=== PATIENT | female | born 1990 | race Caucasian/White ===

== ENCOUNTER 2022-12-04 03:39 | Emergency (ER) | payer OTHER ==
[2022-12-04] MEDS ORDERED: SODIUM CHLORIDE 0.9% 1,000 ML IV ONE ×2 (04:03→04:15)
[2022-12-04 04:35] LABS: ALT 15 U/L (4-34); AST 22 U/L (14-36); African American GFR (CKD) >90 (>60 ml/min/1.73 sqM); Albumin 3.8 g/dL (3.5-5.0); Alkaline Phosphatase 54 U/L (38-126); Anion Gap 9 mmol/L; Blood Urea Nitrogen 7 mg/dL (7-17); Calcium 9.6 mg/dL (8.4-10.2); Carbon Dioxide 20 mmol/L (22-30); Chloride 105 mmol/L (98-107); Glucose 173 mg/dL (74-99); Non-African American GFR(CKD) >90 (>60 ml/min/1.73 sqM); Potassium 3.6 mmol/L (3.5-5.1); Sodium 134 mmol/L (137-145); Total Bilirubin 0.9 mg/dL (0.2-1.3); Total Protein 6.5 g/dL (6.3-8.2)
[2022-12-04] MEDS ORDERED: CARBOPROST TROMETHAMINE 250 MCG/ML 1 ML AMP IM ONE ×3 (05:03→06:49)
[2022-12-04 05:11] LABS: Basophils % (A) 0 %; Eosinophils # (A) 0.1 k/uL (0-0.7); Eosinophils % (A) 0 %; HCT 36.7 % (34.0-46.0); HGB 12.6 gm/dL (11.4-16.0); Lymphocytes # (A) 1.6 k/uL (1.0-4.8); Lymphocytes % (A) 7 %; MCH 29.7 pg (25.0-35.0); MCHC 34.4 g/dL (31.0-37.0); MCV 86.2 fL (80.0-100.0); Mean Platelet Volume 8.2; Monocytes # (A) 0.7 k/uL (0-1.0); Monocytes % (A) 3 %; Neutrophils # (A) 21.7 k/uL (1.3-7.7); Neutrophils % (A) 90 %; Platelet Count 260 k/uL (150-450); RBC 4.26 m/uL (3.80-5.40); RDW 13.8 % (11.5-15.5); WBC 24.2 k/uL (3.8-10.6)
[2022-12-04] MEDS ORDERED: LOPERAMIDE 2 MG CAP PO STA ×2 (05:14→06:02)
[2022-12-04 05:16] LABS: INR 0.9 (<1.2); Partial Thromboplastin Time 23.8 sec (22.0-30.0)
--- NOTE | 2022-12-04 05:26 | ED ---
Female Urogenital HPI - General Chief complaint: Vaginal Bleeding Stated complaint: 15 wks , cramping Time Seen by Provider: 12/04/22 04:00 Source: patient, family Mode of arrival: wheelchair - History of Present Illness Initial comments: 32-year-old female presents to the emergency department with vaginal bleeding. She is a type I diabetic. She is currently 15 weeks . She follows with Dr. Chun. States that she did have a subchorionic hemorrhage which was ultrasounded earlier this week and was 8 cm in size. The patient began having some cramping with spotting on Sunday morning around 11 AM. She went into [facility] where she had an ultrasound completed and demonstrated that the hematoma had shrunk to 2 cm. They report that the baby had a heartbeat. Around 11 PM she began having heavier bleeding and passed a clot. She is with 2 previous miscarriages. She denies any abdominal trauma. No fevers. No dysuria, hematuria or difficulty voiding. No changes in her bowel habits. Blood type is A+. No other alleviating, precipitating or modifying factors - Related Data Previous Rx's Medication Instructions Recorded Acetaminophen Tab [Tylenol] 650 mg PO Q6H PRN #30 tab 12/04/22 Ibuprofen [Motrin] 600 mg PO Q6HR PRN #30 tab 12/04/22 Allergies Allergy/AdvReac Type Severity Reaction Status Date / Time acetaminophen [From Mcintosh] Allergy Unknown Verified 12/04/22 04:11 amoxicillin [From Augmentin] Allergy Unknown Verified 12/04/22 04:11 clavulanic acid Allergy Unknown Verified 12/04/22 04:11 [From Augmentin] erythromycin base Allergy Unknown Verified 12/04/22 04:11 [From Erythrocin] hydrocodone [From Mcintosh] Allergy Unknown Verified 12/04/22 04:11 Sulfa (Sulfonamide Allergy Unknown Verified 12/04/22 04:11 Antibiotics) Review of Systems ROS Statement: Those systems with pertinent positive or pertinent negative responses have been documented in the HPI. ROS Other: All systems not noted in ROS Statement are negative. Past Medical History Past Medical History: Diabetes Mellitus Additional Past Medical History / Comment(s): Type 1 DM. History of Any Multi-Drug Resistant Organisms: None Reported Past Surgical History: Cholecystectomy Additional Past Surgical History / Comment(s): Tubes cleaned, colonoscopy, Past Psychological History: No Psychological Hx Reported Smoking Status: Never smoker Past Alcohol Use History: None Reported Past Drug Use History: None Reported General Exam General appearance: alert, in distress Head exam: Present: atraumatic, normocephalic, normal inspection Eye exam: Present: normal appearance, PERRL, EOMI. Absent: scleral icterus, conjunctival injection, periorbital swelling Respiratory exam: Present: normal lung sounds bilaterally. Absent: respiratory distress, wheezes, rales, rhonchi, stridor Cardiovascular Exam: Present: regular rate, normal rhythm, normal heart sounds. Absent: systolic murmur, diastolic murmur, rubs, gallop, clicks GI/Abdominal exam: Present: soft, normal bowel sounds. Absent: distended, tenderness, guarding, rebound, rigid External exam: Present: other (Vaginal exam demonstrates a 15 week fetus between the patient's legs which is connected to the umbilical cord. This is attached to the placenta which has yet to be delivered. There is a moderate amount of bleeding. Cervix is open) Course Vital Signs 12/04/22 12/04/22 12/04/22 04:00 04:53 07:13 Temperature 97.9 F Pulse Rate 59 L 73 71 Pulse Rate [ Pulse Oximetery ] Respiratory 20 18 17 Rate Blood Pressure 113/61 117/63 124/71 Blood Pressure [Left Arm] O2 Sat by Pulse 99 99 98 Oximetry 12/04/22 12/04/22 12/04/22 08:04 09:09 09:22 Temperature 97.1 F L 97.0 F L Pulse Rate Pulse Rate [ 72 87 Pulse Oximetery ] Respiratory 16 12 Rate Blood Pressure Blood Pressure 145/67 105/59 110/42 [Left Arm] O2 Sat by Pulse 97 100 Oximetry 12/04/22 12/04/22 12/04/22 09:24 09:39 09:54 Temperature Pulse Rate Pulse Rate [ 59 L 57 L 63 Pulse Oximetery ] Respiratory 20 20 20 Rate Blood Pressure Blood Pressure 108/50 111/59 111/54 [Left Arm] O2 Sat by Pulse 100 99 Oximetry 12/04/22 12/04/22 10:07 10:22 Temperature Pulse Rate Pulse Rate [ 60 58 L Pulse Oximetery ] Respiratory 18 16 Rate Blood Pressure Blood Pressure 112/70 119/76 [Left Arm] O2 Sat by Pulse 99 98 Oximetry Medical Decision Making - Medical Decision Making Was pt. sent in by a medical professional or institution (, LICO, [employer], urgent care, hospital, or snf...) When possible be specific @ -No Did you speak to anyone other than the patient for history (EMS, parent, family, police, friend...)? What history was obtained from this source @ -I spoke with the patients Did you review nursing and triage notes (agree or disagree)? Why? @ -I reviewed and agree with nursing and triage notes Were old charts reviewed (outside hosp., previous admission, EMS record, old EKG, old radiological studies, urgent care reports/EKG's, snf records)? Report findings @ -No old charts were reviewed Differential Diagnosis (chest pain, altered mental status, abdominal pain women, abdominal pain men, vaginal bleeding, weakness, fever, dyspnea, syncope, headache, dizziness, GI bleed, back pain, seizure, CVA, palpatations, mental health, musculoskeletal)? @ -Differential Vaginal Bleeding: Spontaneous , threatened , molar , ectopic , bloody show, incompetent cervix, abruptioplacenta, placenta previa, uterine rupture, dysfunctional uterine bleeding, hemorrhage, uterine fi broids, this is not meant to be an all-inclusive list. EKG interpreted by me (3pts min.). @ -Not completed X-rays interpreted by me (1pt min.). @ -None done CT interpreted by me (1pt min.). @ -None done U/S interpreted by me (1pt. min.). @ -None done What testing was considered but not performed or refused? (CT, X-rays, U/S, lab s)? Why? @ -None What meds were considered but not given or refused? Why? @ -None Did you discuss the management of the patient with other professionals (professionals i.e. , LICO, [employer], lab, RT, psych nurse, community mental health social worker, chinese medicine practitioner, teacher, light armored reconnaissance officer, lead case manager)? Give summary @ -Spoke with Dr. Temple who presents to ED Was smoking cessation discussed for >3mins.? @ -No Was critical care preformed (if so, how long)? @ -35 minutes for attempted vaginal delivery of placenta Were there social determinants of health that impacted care today? How? (Homelessness, low income, unemployed, alcoholism, drug addiction, transportation, low edu. Level, literacy, decrease access to med. care, mcc, rehab)? @ -No Was there de-escalation of care discussed even if they declined (Discuss DNR or withdrawal of care, Hospice)? DNR status @ -No What co-morbidities impacted this encounter? (DM, HTN, Smoking, COPD, CAD, Cancer, CVA, ARF, Chemo, Hep., AIDS, mental health diagnosis, sleep apnea, morbid obesity)? @ -None Was patient admitted / discharged? Hospital course, mention meds given and r oute, prescriptions, significant lab abnormalities, going to OR and other pertinent info. @ -Upon arrival patient was placed into room 25. A thorough history and physical exams performed. Patient has given to the fetus in the waiting room. The placenta does remain inside the uterus. Patient is on gowned. Umbilical cord is clamped and cut. I do attempt to pull traction on the cord however a fragment does break off due to the thin nature of the cord. I do attempt to remove the placenta however I continue to have resistance. Because of this I did call and speak with Dr. Chun. She does present to the emergency department. Several rounds of Cytotec and Hemabate are attempted. Placenta is still not delivered. D&C was discussed with the patient and she was agreeable. I did place admitting orders and the patient was taken to the OR Undiagnosed new problem with uncertain prognosis? @ -yes Drug Therapy requiring intensive monitoring for toxicity (Heparin, Nitro, Insulin, Cardizem)? @ -No Were any procedures done? @ -No Diagnosis/symptom? @ -Second trimester vaginal bleeding, spontaneous incomplete miscarriage, retained products of conception, leukocytosis Acute, or Chronic, or Acute on Chronic? @ -acute Uncomplicated (without systemic symptoms) or Complicated (systemic symptoms)? @ -complicated Side effects of treatment? @ -No Exacerbation, Progression, or Severe Exacerbation? @ -No Poses a threat to life or bodily function? How? (Chest pain, USA, ME, pneumonia, PE, COPD, DKA, ARF, appy, cholecystitis, CVA, Diverticulitis, Homicidal, Suicidal, threat to staff... and all critical care pts) @ -yes, patient delivered fetus upon hospital arrival with failed delivery of placenta - Lab Data Result diagrams: 12/04/22 04:07 12/04/22 04:07 Lab Results 12/04/22 12/04/22 12/04/22 Range/Units 04:07 04:07 04:07 WBC 24.2 H (3.8-10.6) k/uL RBC 4.26 (3.80-5.40) m/uL Hgb 12.6 (11.4-16.0) gm/dL Hct 36.7 (34.0-46.0) % MCV 86.2 (80.0-100.0) fL MCH 29.7 (25.0-35.0) pg MCHC 34.4 (31.0-37.0) g/dL RDW 13.8 (11.5-15.5) % Plt Count 260 (150-450) k/uL MPV 8.2 Neutrophils % 90 % Lymphocytes % 7 % Monocytes % 3 % Eosinophils % 0 % Basophils % 0 % Neutrophils # 21.7 H (1.3-7.7) k/uL Lymphocytes # 1.6 (1.0-4.8) k/uL Monocytes # 0.7 (0-1.0) k/uL Eosinophils # 0.1 (0-0.7) k/uL Basophils # 0.0 (0-0.2) k/uL PT 10.0 (9.0-12.0) sec INR 0.9 (<1.2) APTT 23.8 (22.0-30.0) sec Sodium 134 L (137-145) mmol/L Potassium 3.6 (3.5-5.1) mmol/L Chloride 105 (98-107) mmol/L Carbon Dioxide 20 L (22-30) mmol/L Anion Gap 9 mmol/L BUN 7 (7-17) mg/dL Creatinine 0.45 L (0.52-1.04) mg/dL Est GFR (CKD-EPI)AfAm >90 (>60 ml/min/1.73 sqM) Est GFR (CKD-EPI)NonAf >90 (>60 ml/min/1.73 sqM) Glucose 173 H (74-99) mg/dL POC Glucose (mg/dL) (70-110) mg/dL POC Glu Crab Picker ID Calcium 9.6 (8.4-10.2) mg/dL Total Bilirubin 0.9 (0.2-1.3) mg/dL AST 22 (14-36) U/L ALT 15 (4-34) U/L Alkaline Phosphatase 54 (38-126) U/L Total Protein 6.5 (6.3-8.2) g/dL Albumin 3.8 (3.5-5.0) g/dL Blood Type Blood Type Confirm Blood Type Recheck Bld Type Recheck Status Antibody Screen Spec Expiration Date 12/04/22 12/04/22 12/04/22 Range/Units 04:07 04:07 08:14 WBC (3.8-10.6) k/uL RBC (3.80-5.40) m/uL Hgb (11.4-16.0) gm/dL Hct (34.0-46.0) % MCV (80.0-100.0) fL MCH (25.0-35.0) pg MCHC (31.0-37.0) g/dL RDW (11.5-15.5) % Plt Count (150-450) k/uL MPV Neutrophils % % Lymphocytes % % Monocytes % % Eosinophils % % Basophils % % Neutrophils # (1.3-7.7) k/uL Lymphocytes # (1.0-4.8) k/uL Monocytes # (0-1.0) k/uL Eosinophils # (0-0.7) k/uL Basophils # (0-0.2) k/uL PT (9.0-12.0) sec INR (<1.2) APTT (22.0-30.0) sec Sodium (137-145) mmol/L Potassium (3.5-5.1) mmol/L Chloride (98-107) mmol/L Carbon Dioxide (22-30) mmol/L Anion Gap mmol/L BUN (7-17) mg/dL Creatinine (0.52-1.04) mg/dL Est GFR (CKD-EPI)AfAm (>60 ml/min/1.73 sqM) Est GFR (CKD-EPI)NonAf (>60 ml/min/1.73 sqM) Glucose (74-99) mg/dL POC Glucose (mg/dL) 123 H (70-110) mg/dL POC Glu Crab Picker ID Stone, Destini Calcium (8.4-10.2) mg/dL Total Bilirubin (0.2-1.3) mg/dL AST (14-36) U/L ALT (4-34) U/L Alkaline Phosphatase (38-126) U/L Total Protein (6.3-8.2) g/dL Albumin (3.5-5.0) g/dL Blood Type A Positive Blood Type Confirm A Positive Blood Type Recheck No Previous Record Bld Type Recheck Status CABO Indicated Antibody Screen NEGATIVE Spec Expiration Date 12/07/2022 - 230612/04/22 Range/Units 09:31 WBC (3.8-10.6) k/uL RBC (3.80-5.40) m/uL Hgb (11.4-16.0) gm/dL Hct (34.0-46.0) % MCV (80.0-100.0) fL MCH (25.0-35.0) pg MCHC (31.0-37.0) g/dL RDW (11.5-15.5) % Plt Count (150-450) k/uL MPV Neutrophils % % Lymphocytes % % Monocytes % % Eosinophils % % Basophils % % Neutrophils # (1.3-7.7) k/uL Lymphocytes # (1.0-4.8) k/uL Monocytes # (0-1.0) k/uL Eosinophils # (0-0.7) k/uL Basophils # (0-0.2) k/uL PT (9.0-12.0) sec INR (<1.2) APTT (22.0-30.0) sec Sodium (137-145) mmol/L Potassium (3.5-5.1) mmol/L Chloride (98-107) mmol/L Carbon Dioxide (22-30) mmol/L Anion Gap mmol/L BUN (7-17) mg/dL Creatinine (0.52-1.04) mg/dL Est GFR (CKD-EPI)AfAm (>60 ml/min/1.73 sqM) Est GFR (CKD-EPI)NonAf (>60 ml/min/1.73 sqM) Glucose (74-99) mg/dL POC Glucose (mg/dL) 95 (70-110) mg/dL POC Glu Crab Picker ID Sherrie Bustillo Calcium (8.4-10.2) mg/dL Total Bilirubin (0.2-1.3) mg/dL AST (14-36) U/L ALT (4-34) U/L Alkaline Phosphatase (38-126) U/L Total Protein (6.3-8.2) g/dL Albumin (3.5-5.0) g/dL Blood Type Blood Type Confirm Blood Type Recheck Bld Type Recheck Status Antibody Screen Spec Expiration Date Disposition Clinical Impression: Second trimester , Premature delivery, Placenta incomplete at delivery Disposition: ADMITTED IP TO THIS [facility] Condition: Stable Is patient prescribed a controlled substance at d/c from ED?: No Time of Disposition: 08:00 Decision to Admit Reason: Admit from EC Decision Date: 12/04/22 Decision Time: 08:00
[2022-12-04] MEDS ORDERED: OXYTOCIN 10 UNIT/ML 1 ML VIAL IM ONE (06:07)
[2022-12-04] MEDS ORDERED: ONDANSETRON 4 MG/2 ML VIAL IVP STA (06:15)
[2022-12-04] MEDS ORDERED: KETOROLAC 15 MG/ML 1 ML VIAL IVP STA (07:36)
--- NOTE | 2022-12-04 07:37 | P.OBCN ---
History of Present Illness Consult date: 12/04/22 Reason for consult: other (15 week spontaneous , retained placenta) Chief complaint: Cramping, bleeding in History of present illness: Ms. Beltran is a 32 year old at 15 weeks and 1 day with EDC of 05/26/2022 (by LMP consistent with 1st trimester US) who presents to the emergency department for heavy vaginal bleeding and painful cramping that she rates 10/10. I spoke with the patient on the phone during the beginning of this episode and encouraged her to go to the ER for the severity of pain she was experiencing. The is notable for a subchornionic hematoma measuring 2.9 centimeters from which she has been intermittently symptomatic with bleeding and cramping. Upon arrival to the emergency department, she delivered the fetus. However, placenta has remained in situ for approximately 1 hour and 20 minutes. Past obstetric history: 2 full-term and 2 pre-term sections, 2 spontaneous abortions Past medical history: Type I diabetes Past surgical history: section x4, cholecystectomy, hysterosalpingogram, wisdom teeth extraction, EGD Medications: Insulin pump with continuous glucose monitor Past Medical History Past Medical History: Diabetes Mellitus Additional Past Medical History / Comment(s): Type 1 DM. History of Any Multi-Drug Resistant Organisms: None Reported Past Surgical History: Cholecystectomy Additional Past Surgical History / Comment(s): Tubes cleaned, colonoscopy, Past Psychological History: No Psychological Hx Reported Smoking Status: Never smoker Past Alcohol Use History: None Reported Past Drug Use History: None Reported Medications and Allergies Allergies Allergy/AdvReac Type Severity Reaction Status Date / Time acetaminophen [From Pingree] Allergy Unknown Verified 12/04/22 04:11 amoxicillin [From Augmentin] Allergy Unknown Verified 12/04/22 04:11 clavulanic acid Allergy Unknown Verified 12/04/22 04:11 [From Augmentin] erythromycin base Allergy Unknown Verified 12/04/22 04:11 [From Erythrocin] hydrocodone [From Pingree] Allergy Unknown Verified 12/04/22 04:11 Sulfa (Sulfonamide Allergy Unknown Verified 12/04/22 04:11 Antibiotics) Exam Vital Signs Temp Pulse Resp BP Pulse Ox 12/04/22 04:53 73 18 117/63 99 12/04/22 04:00 97.9 F 59 L 20 113/61 99 Intake and Output 12/03/22 12/03/2212/04/23 14:59 22:59 06:59 Other: Weight 63.503 kg Focused physical exam is performed. This is a healthy-appearing female in no apparent distress. Breathing is non-labored. Abdomen is soft, minimally tender. Vaginal bleeding is minimal. Speculum exam is deferred, as the patient recently had one with the ER physician who saw a retained placenta and was unable to remove it. Extremities are non-tender and non-edematous. Results Result Diagrams: 12/04/22 04:07 12/04/22 04:07 Abnormal Lab Results - Last 24 Hours (Table) 12/04/22 12/04/22 Range/Units 04:07 04:07 WBC 24.2 H (3.8-10.6) k/uL Neutrophils # 21.7 H (1.3-7.7) k/uL Sodium 134 L (137-145) mmol/L Carbon Dioxide 20 L (22-30) mmol/L Creatinine 0.45 L (0.52-1.04) mg/dL Glucose 173 H (74-99) mg/dL Assessment and Plan Assessment: 32 year old at 15 weeks and 1 day s/p spontaneous now with retained placenta Plan: 1. Retained placenta. Patient now s/p 3 doses of IM Hemabate 0.25 mg and 10 units of IM Pitocin. Placenta has been retained for 4 hours now. Patient consented for suction D&C in the OR under general anesthesia. NPO since 1999 last night. Discussed risks, benefits, and alternatives to surgery including bleeding, infection, and uterine perforation. The patient understands these risks and desires to proceed with surgery. 2. Fetus. Parents elect not to send to a home and do not request any genetic testing on the fetus. Fetus will be sent in formalin to pathology. Forms signed. 3. Close monitoring of patient. Bleeding stable at this time. Time with Patient: Greater than 30 (1 hour)
[2022-12-04] MEDS ORDERED: DOXYCYCLINE 100 MG CAP PO STA (07:48)
[2022-12-04] MEDS ORDERED: LACTATED RINGERS 1,000 ML IV ONE ×3 (08:02→09:46)
[2022-12-04 08:24] LABS: Glucose,Whole Blood 123 mg/dL (70-110)
[2022-12-04] MEDS ORDERED: fentaNYL (PF) 50 MCG/ML 2 ML AMP ONE (08:25)
[2022-12-04] MEDS ORDERED: PROPOFOL 10 MG/ML 20 ML VIAL IV ONE (08:25)
[2022-12-04] MEDS ORDERED: METHYLERGONOVINE 0.2 MG/ML 1 ML AMP ONE (08:25)
[2022-12-04] MEDS ORDERED: SUCCINYLCHOLINE CHLORIDE 200 MG/10 ML VIAL IV ONE (08:25)
[2022-12-04] MEDS ORDERED: PHENYLEPHRINE-0.9% NACL SYG 1,000 MCG/10 ML SYRINGE ONE (08:25)
[2022-12-04] MEDS ORDERED: LIDOCAINE 2% INJ 20 MG/ML (2 ML VIAL) ONE (08:25)
--- NOTE | 2022-12-04 09:01 | P.OP ---
Date of Procedure: 12/04/22 Preoperative Diagnosis: 1. Spontaneous at 15 weeks and 1 day 2. Retained placenta Postoperative Diagnosis: Same Procedure(s) Performed: Exam Under Anesthesia Implants: None Anesthesia: CHENCHO Surgeon: Marybeth Chun Estimated Blood Loss (ml): 300 Urine output (ml): 400 Pathology: other (placenta) Condition: stable Disposition: same day Indications for Procedure: This is a 32-year-old at 15 weeks and 1 day who presented to the ER after having cramping and vaginal bleeding at home with a known subchorionic hematoma who then went on to have a spontaneous miscarriage of the fetus upon arrival at 4:30 this morning. The placenta was retained despite 3 doses of IM Hemabate and IM oxytocin. The decision was made after 4 hours to proceed with suction D&C in the OR. The patient was consented about the risks of bleeding, infection, and uterine perforation. The patient understood these risks and desired to proceed. Operative Findings: Exam under anesthesia revealed a placenta in the vagina, which was removed intact with ring forceps and sent in formalin to pathology. Cervix was dilated to approximately 4 to 5 centimeters. Bimanual massage was performed and revealed at [id number] uterus. Bleeding was moderate after removal of the placenta, so 0.2 of IM Methergine was given for bleeding prophylaxis. Bleeding after administration of hemabate was minimal. Description of Procedure: The patient was taken to the operating room where a general anesthetic was administered. She was then positioned in the dorsal lithotomy position and prepped and draped in the normal sterile fashion. Once the anesthetic was found to be adequate, a bimanual exam was performed under anesthetic with the above findings noted. A weighted speculum was placed in the vigina and the placenta was found to be sitting at the external os of the cervix. This was removed intact with ring forceps. A vigorous bimanual massage was performed and 0.2 mg of IV Methergine were given for bleeding prophylaxis. The cervix was hemostatic at this time. The patient is Rh positive. After a second bimanual exam was performed the patient's uterus had significantly decreased in size.The patient was taken from the operating room in stable condition after she was cleaned. She will be discharged home today and will follow up in the office in 2 weeks.
[2022-12-04 09:21] VITALS: TEMP 97
[2022-12-04 09:33] LABS: Glucose,Whole Blood 95 mg/dL (70-110)
[2022-12-04 10:23] VITALS: RESP 16
[2022-12-04 11:08] VITALS: BP 112/64; PULSE 60
== END 2022-12-04 18:31 | disposition home or self-care (01) ==
LOC: EC 03:39 → OR 08:01
DX: O03.4 Incomplete spontaneous abortion without complication (principal); E10.9 Type 1 diabetes mellitus without complications; Z79.4 Long term (current) use of insulin; Z88.0 Allergy status to penicillin; Z88.1 Allergy status to other antibiotic agents; Z88.2 Allergy status to sulfonamides; Z88.5 Allergy status to narcotic agent; Z90.49 Acquired absence of other specified parts of digestive tract
CPT/HCPCS: 86900; 86901; 80053; 85025; 85610; 85730; 86850; 59812; J0330; J2210; J2590; J2405; J3010; J1885; J2704; J2001; J2371; 36415; 88300; 88305

== ENCOUNTER 2023-07-14 21:07 | Outpatient (CLI) | payer OTHER ==
[2023-07-14 21:39] LABS: Appearance,Urine Clear (Clear); Bilirubin,Urine Negative (Negative); Blood,Urine Negative (Negative); Color,Urine Colorless; Glucose,Urine (UA) 3+ (Negative); Ketones,Urine Negative (Negative); Leukocyte Esterase,Urine Negative (Negative); Nitrite,Urine Negative (Negative); PH, Urine 6.5 (5.0-8.0); Protein,Urine Negative (Negative); Specific Gravity,Urine 1.003 (1.001-1.035); Urobilinogen,Urine <2.0 mg/dL (<2.0)
[2023-07-14 23:01] VITALS: BP 122/87; PULSE 70; RESP 16; TEMP 97.3
--- NOTE | 2023-08-27 09:08 | P.MSEPDOC ---
Presenting Problems - Arrival Data Date of Arrival on Unit: 07/14/23 Time of Arrival on Unit: 21:07 Mode of Transport: Ambulatory - Complaint OB-Reason for Admission/Chief Complaint: Pain Comment: Patient presents [facility] with complaint of contraction pain that began at 1730. Patient states they begin in her upper abdomen and radiate to her back, at the same time she reports feeling vaginal pressure. Patient states that the pain is 7/10, constant and does not feel like it lets up completely. Medical History - Information : 8 Para: 4 Term: 4 : 0 Abortions: Spontaneous or Elective: 3 Number of Living Children: 4 - Gestational Age Gestational Age by CLAUDINE (wks/days): 22 Weeks and 1 Days - History Comment: type 1 DM Review of Systems - Review of Systems Constitutional: No problems Breast: No problems ENT: No problems Cardiovascular: No problems Respiratory: No problems Gastrointestinal: No problems Genitourinary: No problems Musculoskeletal: No problems Neurological: No problems Skin: No problems Vital Signs - Temperature Temperature: 97.3 F Temperature Source: Temporal Artery Scan - Pulse Right Brachial Pulse Rate: 70 Pulse Assessment Method: Automatic Cuff - Respirations Respiratory Rate: 16 Oxygen Delivery Method: Room Air O2 Sat by Pulse Oximetry: 100 - Blood Pressure Right Arm Blood Pressure: 122/87 Blood Pressure Mean: 98 Blood Pressure Source: Automatic Cuff Medical Screen Scoring - Cervical Exam Membranes: Intact - Uterine Contractions Resting: Soft to palpation Physician Notification - Physician Notified Physician Notified Date: 07/14/23 Physician Notified Time: 22:01 Physician: Cee Son New Order Received: Yes - Notification Comment Comment: Dr. Son called with report on patient who presents to triage with rep ort of contraction type pain that radiates to pelvis and back that began at 1730. No contractions per toco and abdomen soft. U/A and vitals reviewed. Dr. Son ordered cervical exam by RN, if closed may be discharged. Patient to follow up within the next week and pelvic rest. Maternal Triage Index - Non-Urgent/Priority 4 Non-Urgent Priority 4: Yes Criteria Met for Priority 4: discomforts of Disposition - Disposition OB Disposition: Discharge to home Discharge Date: 07/14/23 Discharge Time: 22:12 I agree with the RN Medical Screening Exam: Yes Case reviewed; plan agreed upon as documented in EMR&OBIX.: Yes Diagnosis: RELATED CONDITIONS, UNSPECIFIED, SECOND TRIMESTER
== END 2023-07-14 22:17 ==
LOC: FBPOP 21:07
PROVIDERS: ATTEND Obstetrics & Gynecology Obstetrics
DX: O26.892 Other specified pregnancy related conditions, second trimester (principal); R10.10 Upper abdominal pain, unspecified; M51.9 Unspecified thoracic, thoracolumbar and lumbosacral intervertebral disc disorder; M54.9 Dorsalgia, unspecified; R10.2 Pelvic and perineal pain; O24.012 Pre-existing type 1 diabetes mellitus, in pregnancy, second trimester; Z3A.22 22 weeks gestation of pregnancy; Z88.1 Allergy status to other antibiotic agents; Z88.0 Allergy status to penicillin; Z88.5 Allergy status to narcotic agent; Z88.2 Allergy status to sulfonamides; Z88.8 Allergy status to other drugs, medicaments and biological substances
CPT/HCPCS: 81003; G0463; 99213

== ENCOUNTER 2023-10-11 22:59 | Outpatient (CLI) | payer OTHER ==
[2023-10-12 00:05] LABS: Appearance,Urine Clear (Clear); Bilirubin,Urine Negative (Negative); Blood,Urine Negative (Negative); Color,Urine Colorless; Glucose,Urine (UA) 4+ (Negative); Ketones,Urine Negative (Negative); Leukocyte Esterase,Urine Negative (Negative); Nitrite,Urine Negative (Negative); PH, Urine 6.5 (5.0-8.0); Protein,Urine Negative (Negative); Specific Gravity,Urine 1.011 (1.001-1.035); Urobilinogen,Urine <2.0 mg/dL (<2.0)
[2023-10-12] MEDS: TERBUTALINE 1 MG/ML VIAL SQ STA ×3 (01:21→02:25)
[2023-10-12] MEDS: LACTATED RINGERS 1,000 ML IV ONE (02:27)
[2023-10-12 03:05] VITALS: BP 123/78; PULSE 68; RESP 16; TEMP 97.2
--- NOTE | 2023-10-28 10:59 | P.MSEPDOC ---
Presenting Problems - Arrival Data Date of Arrival on Unit: 10/12/23 Time of Arrival on Unit: 22:59 Mode of Transport: Ambulatory - Complaint OB-Reason for Admission/Chief Complaint: PIH Comment: Pt presents stating that she had talked to Dr. Chun today at approximately 2pm and was having complaints of vision changes with blurred vision that is worse on her right side and floaters in her vision, a headache and increased blood pressure. Pt states that she took her blood pressure a few times today and the highest blood pressure she had was 140s/70s. Pt states that her blood pressure usually runs in the low 100s diastolic. Pt states that when she spoke with Dr. Chun this afternoon, Dr. Chun had told her to come to triage for monitoring and labs. Pt states that she "thought it would go away" and so she did not come in this afternoon. Pt also states that she is having contractions about every 20 minutes. Medical History - Information : 8 Para: 4 Term: 4 : 0 Abortions: Spontaneous or Elective: 3 Number of Living Children: 4 - Gestational Age Gestational Age by CLAUDINE (wks/days): 35 Weeks and 0 Days Review of Systems - Review of Systems Constitutional: No problems Breast: No problems ENT: No problems Cardiovascular: No problems Respiratory: No problems Gastrointestinal: No problems Genitourinary: No problems Musculoskeletal: No problems Neurological: No problems Skin: No problems Vital Signs - Temperature Temperature: 97.2 F Temperature Source: Temporal Artery Scan - Pulse Pulse Oximetery Pulse Rate: 68 Pulse Assessment Method: Pulse Oximetry - Respirations Respiratory Rate: 16 Oxygen Delivery Method: Room Air O2 Sat by Pulse Oximetry: 99 - Blood Pressure Right Arm Blood Pressure: 123/78 Blood Pressure Mean: 93 Blood Pressure Source: Automatic Cuff Medical Screen Scoring - Cervical Exam Dilation (cm): 0 Effacement (%): 50 Station: -2 Membranes: Intact - Uterine Contractions Frequency From (mins): 2 Frequency To (mins): 5 Duration From (seconds): 50 Duration To (seconds): 70 Intensity: Mild Resting: Soft to palpation - Assessment - Baby A Baseline FHR: 130 Heart Rate - NICHD Category: Category I (Normal) NST: Reactive Physician Notification - Physician Notified Physician Notified Date: 07/18/24 Physician Notified Time: 23:35 Physician: Castillo Wray Order Received: Yes - Notification Comment Comment: At 2335, Dr. Wray called at home, notified of pt complaints, GA, G/P, contraction pattern, serial blood pressures, CAT 1 FHT. At this time, blood pressurs do not indicate need for PIH workup. Orders for U/A, if pt hurting with contractions, check cervix, call back with results. At 0111, Dr. wray called and notified of contractions every 2-5min pt. rating pain 6/10, no cervical change pt. is closed and thick, orders to start terb, and if contractions go away with medication pt. can be discharge home. At 0226, RN spoke with Dr. Wray and updated him on pt status, including pt has received three doses of terbutaline, pt is still having some contx but rating them 2 out of 10. Order received to check pt's cervix and if it is still closed, pt can be discharged home with instructions on when to return for labor. Maternal Triage Index - Maternal Triage Index Presenting for scheduled procedure w/no complaint: No - Stat/Priority 1 Stat Priority 1: No - Urgent/Priority 2 Urgent Priority 2: No - Prompt/Priority 3 Prompt Priority 3: Yes Criteria Met for Priority 3: C/o early labor signs 34 6/7 weeks Disposition - Disposition OB Disposition: Discharge to home, Written follow up instructions reviewed Discharge Date: 10/12/23 Discharge Time: 02:40 I agree with the RN Medical Screening Exam: Yes Physician's MSE Comment: I have neither seen nor examined the patient. Case reviewed; plan agreed upon as documented in EMR&OBIX.: Yes Diagnosis: RELATED CONDITIONS, UNSPECIFIED, THIRD TRIMESTER
== END 2023-10-12 02:40 | disposition home or self-care (01) ==
LOC: FBPOP 22:59
PROVIDERS: ATTEND Obstetrics & Gynecology
DX: O13.3 Gestational [pregnancy-induced] hypertension without significant proteinuria, third trimester (principal); Z3A.35 35 weeks gestation of pregnancy; Z88.1 Allergy status to other antibiotic agents; Z88.0 Allergy status to penicillin; Z88.5 Allergy status to narcotic agent; Z88.2 Allergy status to sulfonamides; Z88.8 Allergy status to other drugs, medicaments and biological substances
CPT/HCPCS: 59025; 96372; 81003; G0463; J3105; 99215

== ENCOUNTER 2023-10-23 21:20 | Inpatient (IN) | payer OTHER ==
[2023-10-23] MEDS ORDERED: METHYLERGONOVINE 0.2 MG/ML 1 ML AMP IM PRN (21:57)
[2023-10-23] MEDS ORDERED: miSOPROStoL 200 MCG TAB PO PRN (21:57)
[2023-10-23] MEDS ORDERED: TRANEXAMIC 1,000 MG/100ML-NACL 1,000 MG in EMPTY BAG 1 BAG IV PRN (21:57)
[2023-10-23] MEDS ORDERED: CARBOPROST TROMETHAMINE 250 MCG/ML 1 ML AMP IM PRN (21:57)
[2023-10-23] MEDS ORDERED: OXYTOCIN 10 UNIT/ML 1 ML VIAL IM PRN (21:57)
[2023-10-23] MEDS ORDERED: OXYTOCIN 30 UNITS/500 ML NS 30 UNIT in SALINE 1 500ML.BAG IV SCH (22:00)
[2023-10-23] MEDS ORDERED: TERBUTALINE 1 MG/ML VIAL SQ PRN (22:00)
[2023-10-23] MEDS: CITRIC ACID-SODIUM CITRATE 15 ML CUP PO ONE (22:22)
[2023-10-23] MEDS: LACTATED RINGERS 1,000 ML IV SCH (22:24)
[2023-10-23 22:28] LABS: Basophils % (A) 0 %; Eosinophils # (A) 0.1 k/uL (0-0.7); Eosinophils % (A) 1 %; HCT 33.9 % (34.0-46.0); HGB 11.8 gm/dL (11.4-16.0); Lymphocytes # (A) 1.2 k/uL (1.0-4.8); Lymphocytes % (A) 12 %; MCH 30.4 pg (25.0-35.0); MCHC 34.7 g/dL (31.0-37.0); MCV 87.6 fL (80.0-100.0); Monocytes # (A) 0.7 k/uL (0-1.0); Monocytes % (A) 7 %; Neutrophils # (A) 7.7 k/uL (1.3-7.7); Neutrophils % (A) 78 %; Platelet Count 175 k/uL (150-450); RBC 3.87 m/uL (3.80-5.40); RDW 14.1 % (11.5-15.5); WBC 9.8 k/uL (3.8-10.6)
--- NOTE | 2023-10-23 22:31 | P.HPOB ---
History of Present Illness H&P Date: 10/23/23 Chief Complaint: Leaking of fluid Ms. Beltran is a 33 year old at 36 weeks and 4 days with EDC of 11/16/2023 by LMP consistent with 7 week US who presents with grossly ruptured membranes. Her has been complicated by Type 1 Diabetes and history of 4 previous sections. She has been undergoing biweekly surveillance throughout the third trimester. The patient follows with endocrinology for diabetes management. She has a continuous glucose monitor and an insulin pump which is regularly reviewed and titrated per endocrinology. She has also followed with MFM throughout the for co-management. She desires permanent contraception with bilateral salpingectomy, for which consent has been signed and reviewed with the patient. The fetus is estimated to measure in greater than the 99%ile for growth based on a 30 week US. Obstetric history: 2 full-term , 2 pre-term c-sections, 1 15-week SAB secondary to placental abruption, 2 SABs. work-up: blood type A positive, antibody screen negative, rubella immune, VDRL non-reactive, HBsAg negative, HIV negative, HCV Ab negative, gonorrhea negative, chlamydia negative, GBS unknown (collected yesterday). s/p TDap vaccine 10/17/23. Past Medical History Past Medical History: Diabetes Mellitus Additional Past Medical History / Comment(s): Type 1 DM. History of Any Multi-Drug Resistant Organisms: None Reported Past Surgical History: Cholecystectomy Additional Past Surgical History / Comment(s): Tubes cleaned, colonoscopy, Past Anesthesia/Blood Transfusion Reactions: No Reported Reaction Past Psychological History: No Psychological Hx Reported Smoking Status: Never smoker Past Alcohol Use History: None Reported Past Drug Use History: None Reported Medications and Allergies Home Medications Medication Instructions Recorded Confirmed Type Iron 18 mg PO DAILY 07/14/23 10/23/23 History Vit No.179/Iron/Folic 1 each PO DAILY 07/14/23 10/23/23 History [ Tablet] Allergies Allergy/AdvReac Type Severity Reaction Status Date / Time acetaminophen [From Harlan] Allergy Rash/Hives Verified 10/23/23 21:37 amoxicillin [From Augmentin] Allergy Rash/Hives Verified 10/23/23 21:37 clavulanic acid Allergy Rash/Hives Verified 10/23/23 21:37 [From Augmentin] erythromycin base Allergy Rash/Hives Verified 10/23/23 21:37 [From Erythrocin] hydrocodone [From Harlan] Allergy Rash/Hives Verified 10/23/23 21:37 Sulfa (Sulfonamide Allergy Rash/Hives Verified 10/23/23 21:37 Antibiotics) Exam Vital Signs Temp Pulse Resp BP Pulse Ox 10/23/23 22:02 98.7 F 81 16 137/96 98 Intake and Output 10/23/23 10/23/23 10/23/23 06:59 14:59 22:59 Other: Weight 81.193 kg Focused physical exam is performed. This is a healthy-appearing in no apparent distress. Breathing is non-labored. Abdomen is gravid and non-tender. Cervical exam is 1/thick/high. Patient is noted to be grossly ruptured. Extremities non-tender and non-edematous. heart tones are Category I and tocometer is graphing contractions every 3-4 minutes. Assessment and Plan Assessment: 33 year old at 36 weeks and 4 days with history of 4 prior c-sections and Type I DM presenting with PPROM Plan: Admit, initiate protocol, NPO, IV kefzol for surgical ppx.
[2023-10-23] MEDS ORDERED: diphenhydrAMINE 50 MG/ML 1 ML VIAL ONE (22:35)
[2023-10-23] MEDS ORDERED: MORPHINE SULFATE (PF) 0.3 MG/0.3 ML SYR ONE (22:35)
[2023-10-23] MEDS ORDERED: DEXAMETHASONE SOD PHOS (MDV) 100 MG/10 ML VIAL ONE (22:35)
[2023-10-23] MEDS ORDERED: PHENYLEPHRINE-0.9% NACL SYG 1,000 MCG/10 ML SYRINGE ONE (22:35)
[2023-10-23] MEDS ORDERED: fentaNYL (PF) 50 MCG/ML 2 ML AMP ONE (22:35)
[2023-10-23] MEDS ORDERED: OXYTOCIN 10 UNIT/ML 1 ML VIAL ONE (22:35)
[2023-10-23] MEDS ORDERED: ONDANSETRON 4 MG/2 ML VIAL ONE (22:35)
[2023-10-23] MEDS ORDERED: KETOROLAC 15 MG/ML 1 ML VIAL ONE (22:35)
[2023-10-24] MEDS ORDERED: ONDANSETRON 4 MG/2 ML VIAL IVP PRN (00:07)
[2023-10-24] MEDS ORDERED: METOCLOPRAMIDE 5 MG/ML 2 ML VIAL IVP PRN (00:07)
[2023-10-24] MEDS ORDERED: diphenhydrAMINE 25 MG CAP PO PRN (00:07)
[2023-10-24] MEDS ORDERED: NALOXONE 0.4 MG/ML 1 ML VIAL IV PRN (00:07)
[2023-10-24] MEDS ORDERED: diphenhydrAMINE 50 MG CAP PO PRN (00:07)
[2023-10-24] MEDS ORDERED: diphenhydrAMINE 50 MG/ML 1 ML VIAL IVP PRN ×2 (00:07)
[2023-10-24] MEDS ORDERED: ZOLPIDEM 5 MG TAB PO PRN (00:07)
--- NOTE | 2023-10-24 00:07 | P.OP ---
Date of Procedure: 10/23/23 Preoperative Diagnosis: 1. IUP at 36 weeks and 4 days 2. History of 4 prior sections 3. PPROM 4. Type I Diabetes Mellitus 5. Breech presentation 6. Desires permanent contraception Postoperative Diagnosis: Same Procedure(s) Performed: Repeat Lower Transverse Section with Bilateral Salpingectomy Implants: None Anesthesia: spinal Surgeon: Marybeth Chun Sales Service Assistant #1: Natalee Arevalo Estimated Blood Loss (ml): 366 IV fluids (ml): 1,500 Urine output (ml): 800 (clear yellow) Pathology: other (placenta to pathology) Condition: stable Disposition: floor Indications for Procedure: Ms. Beltran is a 33 year old at 36 weeks and 4 days with a complicated by Type I diabetes mellitus and history of 4 prior sections who presents to labor and delivery with gross rupture of membranes. The risks, benefits, and alternatives to section were discussed with the patient including risk of bleeding, infection, damage to surrounding structures including bladder/bowels/ureters, and post-operative VTE. The patient understands these risks and desires to proceed with section. The patient understands that bilateral salpingectomy is non-reversible and she will never be able to conceive again without IVF. All questions answered. Operative Findings: Significant adhesions throughout the pelvis from the uterus to the anterior abdominal wall. Clear amniotic fluid is noted. Viable female infant is delivered from footling breech presentation. Apgars are 7 and 9. Weight is 9 pounds and 15 ounces. Aside from adhesions, the uterus is normal. Bilateral fallolpian tubes and ovaries are unremarkable. Description of Procedure: The patient was taken back to the operating room where spinal anesthesia was found to be adequate. Two grams of Ancef were given for infection prophylaxis. She was prepared and draped in the dorsal supine position with a leftward tilt. A Pfannenstiel skin incision was made with the scalpel. The incision was carried down to the fascia with a bovie. The fascia was incised and extended laterally with Peterson scissors. The superior aspect of the fascia was grasped with the Gladys clamps. The underlying rectus muscle was dissected off sharply with Peterson scissors. In a similar fashion, the inferior aspect of the fascia was elevated with Gladys clamps and the rectus muscle and pyramidalis were dissected off. Excellent hemostasis was achieved with the bovie. The rectus muscle was in the midline down to the level of the pubic symphysis. Pre- peritoneal fatty tissue was bluntly dissected to expose the peritoneum. The peritoneum was found to be free of adherent bowel and entered sharply with Peterson scissors. The peritoneal incision was extended superiorly and inferiorly to the bladder reflection with good visualization of the bladder. The bladder blade was inserted and vesicouterine peritoneum was identified. Intraabdominal survey revealed scant, clear peritoneal fluid and the thinned-out lower uterine segment. The vesicouterine peritoneum was opened with scissors and the bladder flap was developed. The bladder blade was repositioned to keep the bladder out of the operative field. The lower uterine segment was incised with a scalpel. The amniotic sac was ruptured with an Allis clamp and clear fluid was noted. The uterine incision was extended bluntly with lateral and upward traction. The fetus was in double footling breech presentation. The feet were delivered. The buttocks was palpated and delivered gradually through the hysterotomy. With gentle pressure the body gradually delivered. Once the scapula could be seen the baby was gently rotated and both arms were delivered using the Loveseat maneuver. Maintaining head flexion in a modified [id number] maneuver the head was delivered without difficulty. The infant was delivered. The mouth and nose were suctioned with a bulb. The cord was clamped and cut. The infant was handed off to the pediatric gia. IV oxytocin was initiated to facilitate uterine contractions. The placenta was delivered intact with manual massage of uterine fundus. The uterus was then exteriorized and the inside of the uterus was gently wiped with a lap sponge to assure complete removal of placental membranes. The uterine incision was closed with 0-Vicryl suture in a running locked fashion. A second imbricating layer was placed with 0-Vicryl. The ovaries and tubes were found to be normal. The LigaSure device was used to sequentially cauterize and cut the fallopian tubes from the fimbriated ends to the level of the uterine cornua. The uterus and ovaries were then gently returned to the abdominal cavity. The abdomen was copiously suction irrigated. Surgicel powder was applied to the hysterotomy for hemostasis. A layer of intercede was placed on top of the uterus. The uterine incision was reinspected and excellent hemostasis was noted. The fascial layer was closed with a 0-Vicryl suture. The subcutaneous tissue was reapproximated with 2-0 Plain Gut. The skin was closed with 4-0 Monocryl in a subcuticular fashion.The patient tolerated the procedure well. All the counts were correct times two. The patient was taken to the recovery room in a stable condition. A physician orthotic assistant was utilized for the entire procedure due to the need for tissue retraction, dissection of vital structures, prevention and management of blood loss, and reduction in overall operative and anesthesia time as is the standard of care.
[2023-10-24] MEDS: KETOROLAC 15 MG/ML 1 ML VIAL IVP SCH (00:42)
[2023-10-24] MEDS: ACETAMINOPHEN TAB 500 MG TAB PO SCH (03:10)
[2023-10-24] MEDS: IBUPROFEN 600 MG TAB PO SCH (06:30)
[2023-10-24] MEDS: LACTATED RINGERS 1,000 ML IV SCH (06:31)
[2023-10-24] MEDS: SENNOSIDES-DOCUSATE SODIUM 1 EACH TAB PO SCH (07:33)
--- NOTE | 2023-10-24 07:34 | P.PN ---
Progress Note - Text Progress Note Date: 10/24/23 Patient was seen and examined at bed side. Received intrathecal morphine 300 mcg for postop pain control as per surgeon request. Today postop day 1 -C- section . Today complaining her pain levels 2 out of 10 in severity. Able to ambulate without any difficulty. Denied any weakness. Mild itching. Physical exam: Vitals : stable vitals, afebrile Assessment and plan: S/p postop day 1 - . Continue oral pain medications as needed as per primary care. Please contact anesthesia as needed.
--- NOTE | 2023-10-24 08:27 | P.PNOBGPC ---
Subjective - Subjective Principal diagnosis: s/p repeat with bilateral salpingectomy Interval history: The patient is doing well this morning and had no acute events overnight. She has no complaints this morning. She reports minimal lochia, passing flatus, voiding without difficulty, ambulating, and eating/drinking without nausea or vomiting. She is supplementing with formula as she is struggling for her to latch. She denies chest pain, shortness of breathing, fevers, or chills overnight. She denies pain or swelling in the legs. Blood glucose well controlled overnight. Patient reports: Reports appetite normal, Reports voiding normally, Reports pain well controlled, Reports ambulating normally : doing well, other (difficulty latching) Objective - Vital Signs Latest vital signs: Vital Signs Temp Pulse Resp BP Pulse Ox 10/24/23 04:00 66 16 153/75 97 10/24/23 01:53 96.5 F L 51 L 18 141/78 10/24/23 01:38 50 L 16 143/81 10/24/23 01:23 51 L 18 142/83 10/24/23 01:08 64 18 130/82 10/24/23 00:53 64 18 128/82 10/24/23 00:38 66 16 135/63 10/24/23 00:23 63 18 133/74 10/24/23 00:08 57 L 16 125/68 10/23/23 23:53 96.1 F L 68 18 134/82 10/23/23 22:02 98.7 F 81 16 137/96 98 10/23/23 21:35 98.7 F 81 18 137/96 98 Intake and Output 10/23/23 10/24/23 10/24/23 22:59 06:59 14:59 Output Total 1778 Balance -1778 Output: Urine 1200 Output, Quantitative 578 Blood Loss Other: Voiding Method Indwelling Catheter Weight 81.193 kg - Exam Extremities: Present: normal Abdomen: Present: normal appearance, soft Incision: Present: normal, dry, dressed Uterus: Present: normal, firm - Labs Labs: Abnormal Lab Results - Last 24 Hours (Table) 10/23/23 Range/Units 22:00 Hct 33.9 L (34.0-46.0) % Assessment and Plan Assessment: 33 year old now POD#1 s/p repeat section with bilateral salpingectomy Plan: 1. Postoperative. Patient meeting all post-operative milestones appropriately. Continue to monitor. 2. Type I DM. Blood glucose ranged from 110-120 overnight. 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 3. Elevated blood pressures . Will start daily Procardia XL 30mg. 4. Viable female infant. Doing well at bedside. Meet with organizational research consultant for difficulty latching. Dispo: Continue inpatient management. Anticipate discharge home on POD#2-3.
[2023-10-24] MEDS: NIFEdipine XL 30 MG TAB.ER.24 PO SCH (10:59)
[2023-10-24] MEDS: SIMETHICONE 80 MG CHEWABLE PO PRN (15:39)
[2023-10-24 17:06] VITALS: RESP 16
[2023-10-25 07:15] LABS: Basophils % (A) 0 %; Eosinophils # (A) 0.1 k/uL (0-0.7); Eosinophils % (A) 1 %; HCT 31.8 % (34.0-46.0); HGB 10.9 gm/dL (11.4-16.0); Lymphocytes # (A) 1.2 k/uL (1.0-4.8); Lymphocytes % (A) 11 %; MCH 30.8 pg (25.0-35.0); MCHC 34.1 g/dL (31.0-37.0); MCV 90.2 fL (80.0-100.0); Mean Platelet Volume 9.5; Monocytes # (A) 0.6 k/uL (0-1.0); Monocytes % (A) 5 %; Neutrophils # (A) 8.8 k/uL (1.3-7.7); Neutrophils % (A) 82 %; Platelet Count 170 k/uL (150-450); RBC 3.53 m/uL (3.80-5.40); RDW 13.9 % (11.5-15.5); WBC 10.8 k/uL (3.8-10.6)
[2023-10-25 09:53] VITALS: BP 106/66; PULSE 66; TEMP 97.9
--- NOTE | 2023-10-25 10:03 | P.DS ---
Providers Date of admission: 10/23/23 21:53 Expected date of discharge: 10/25/23 Attending physician: Marybeth Chun MD Primary care physician: Stated None Hospital Course: Ms. Beltran is a 33 year old now POD#2 s/p repeat section with bilateral salpingectomy in the 36th week after PPROM. Her was complicated by type I diabetes mellitus for which she followed with endocrinology. The patient is doing well this morning and had no acute events overnight. She has no complaints this morning. She reports minimal lochia, passing flatus, voiding without difficulty, ambulating, and eating/drinking without nausea or vomiting. Infant doing well at bedside, nursing well. She denies chest pain, shortness of breathing, fevers, or chills overnight. She denies pain or swelling in the legs. Postoperative restrictions are reviewed with the patient including pelvic rest for 6 weeks, no lifting heavier than 15 pounds for 6 weeks. The patient is encouraged to call the office if she experiences any heavy bleeding, foul-smelling discharge, breast complaints, or any if she has any other concerns. She will follow up in the office with in 2 weeks for postoperative exam. She will go home with Motrin, Tylenol, stool s ofteners, and a small supply of oxycodone for breakthrough pain. All questions are answered. Assessment: 33 year old now POD#2 s/p repeat with bilateral salpingectomy Patient Condition at Discharge: Good Plan - Discharge Summary New Discharge Prescriptions: New polyethylene glycoL 3350 [Miralax] 17 gm PO DAILY PRN #527 gm PRN Reason: Constipation Ibuprofen [Motrin] 600 mg PO Q6HR PRN #30 tab PRN Reason: Mild Pain (Scale 1 To 3) oxyCODONE HCL [Roxicodone] 5 mg PO Q6HR PRN 3 Days #12 tab PRN Reason: Breakthrough Pain Acetaminophen Tab [Tylenol] 650 mg PO Q6H PRN #30 tab PRN Reason: Mild Pain (Scale 1 To 3) No Action Vit No.179/Iron/Folic [ Tablet] 1 each PO DAILY Iron 18 mg PO DAILY Discharge Medication List Iron 18 mg PO DAILY 07/14/23 [History] Vit No.179/Iron/Folic [ Tablet] 1 each PO DAILY 07/14/23 [History] Acetaminophen Tab [Tylenol] 650 mg PO Q6H PRN #30 tab 10/25/23 [Rx] Ibuprofen [Motrin] 600 mg PO Q6HR PRN #30 tab 10/25/23 [Rx] oxyCODONE HCL [Roxicodone] 5 mg PO Q6HR PRN 3 Days #12 tab 10/25/23 [Rx] polyethylene glycoL 3350 [Miralax] 17 gm PO DAILY PRN #527 gm 10/25/23 [Rx] Follow up Appointment(s)/Referral(s): Marybeth Chun MD [STAFF PHYSICIAN] - 1 Week (blood pressure check in 1 week, post-operative exam in 2 weeks) Activity/Diet/Wound Care/Special Instructions: Instructions 1. Do not begin any exercise program for 3 weeks. 2. Do not resume sexual relations for 6 weeks or longer if uncomfortable. 3. You may take tub baths or showers at any time. 4. You may use tampons if desired after 6 weeks. 5. Keep any areas repaired with stitches clean and dry. 6. If you are not nursing, wear a good fitting, supportive bra during the day and limit fluid intake for at least 1 week to prevent breast engorgement. 7. Call the office, , within the next week to make appointment for your 6 week checkup if it has not already been made. 8. Report any of the following occurrences to the doctor promptly: a. Heavy, excessive bleeding b. Chills, fever c. Burning or frequency of urination d. Pain or redness and breasts if nursing e. Increasing pain or swelling of vulva (stitches). In addition to the above instructions, the following additional should be followed: 1. No heavy lifting or straining (exercising) until after 6 week checkup. 2. Keep abdominal incision clean and dry: You may wear a dressing if more comfortable. 3. Make office appointment for 2 weeks after delivery date. Discharge Disposition: HOME SELF-CARE
== END 2023-10-25 14:35 | disposition home or self-care (01) | DRG 539 ==
LOC: FBPOP 21:20 → 4FBP 21:53
PROVIDERS: ADMIT Obstetrics & Gynecology; ATTEND Obstetrics & Gynecology
PROC: 0UB70ZZ Excision of Bilateral Fallopian Tubes, Open Approach (ICD-10-PCS; 2023-10-23)
PROC: 0DNW0ZZ Release Peritoneum, Open Approach (ICD-10-PCS; 2023-10-23)
PROC: 10D00Z1 Extraction of Products of Conception, Low, Open Approach (ICD-10-PCS; principal; 2023-10-23 22:56)
DX: O24.02 Pre-existing type 1 diabetes mellitus, in childbirth (principal); K66.0 Peritoneal adhesions (postprocedural) (postinfection); N73.6 Female pelvic peritoneal adhesions (postinfective); O32.8XX0 Maternal care for other malpresentation of fetus, not applicable or unspecified; O34.211 Maternal care for low transverse scar from previous cesarean delivery; O42.913 Preterm premature rupture of membranes, unspecified as to length of time between rupture and onset of labor, third trimester; O99.892 Other specified diseases and conditions complicating childbirth; Z30.2 Encounter for sterilization; Z37.0 Single live birth; Z3A.36 36 weeks gestation of pregnancy; Z79.4 Long term (current) use of insulin; Z88.6 Allergy status to analgesic agent; Z88.1 Allergy status to other antibiotic agents; O99.73 Diseases of the skin and subcutaneous tissue complicating the puerperium; L29.9 Pruritus, unspecified
CPT/HCPCS: 59025; 84112; 85025; 86850; 86900; 86901; 88302; 99213